=== PATIENT | female | born 1960 | race Caucasian/White ===

== ENCOUNTER → 2020-07-29 | Outpatient (CLI) | payer MEDICARE, OTHER ==
[~2020-07-29] VITALS: Ht 171.4 cm; Wt 79.4 kg
[~2020-07-29] MED LIST: MECL-159 PO; albuterol 2.5 MG/3 ML nebule NEB ONE
[2020-07-29 10:50] LABS: TOTAL HEMOGLOBIN 14.7 G/dl (12.0-16.0)
== END | disposition home or self-care (01) ==
LOC: RT 10:23
PROVIDERS: ATTEND Internal Medicine Pulmonary Disease
DX: J44.9 Chronic obstructive pulmonary disease, unspecified (principal)
CPT/HCPCS: 85018; 94060; 94727; 94729; 94760

== ENCOUNTER 2021-01-22 10:08 | Outpatient (CLI) | payer MEDICARE, OTHER ==
[~2021-01-22 10:08] MED LIST changes: +BARIUM SULFATE 700 MG TABLET PO ONE; -albuterol 2.5 MG/3 ML nebule NEB ONE; +barium sulfate 450ml oral suspension ONE
== END 2021-01-22 23:59 | disposition home or self-care (01) ==
LOC: RAD 10:08
PROVIDERS: ATTEND Family Medicine
DX: K21.9 Gastro-esophageal reflux disease without esophagitis (principal)
CPT/HCPCS: 74240; 74246